=== PATIENT | female | born 1985 | race Two or more races ===

== ENCOUNTER 2018-03-07 12:58 | Observation (INO) | payer BC ==
[2018-03-07] MEDS ORDERED: Acetaminophen TAB* 325 MG ONE (13:59)
[2018-03-07] MEDS: Acetaminophen TAB* 325 MG PO ONE ×2 (14:01→14:51)
--- NOTE | 2018-03-07 14:40 | RAD ---
INDICATION: Postoperative fever evaluate for retained products of conception 3 days . COMPARISON: Comparison is made with a prior pelvic ultrasound from February 20, 2017. TECHNIQUE: Multiple real-time transvaginal images of the pelvis were obtained. FINDINGS: The uterus is heterogeneous and enlarged and normal in shape. The uterus measured 17.7 x 10.3 x 14.7 cm. The endometrial echo measured 0.6 cm in thickness. There is no increased vascularity in or around the endometrium. The right ovary measured 4.3 x 2.5 x 2.7 cm. The left ovary measured 5.0 x 2.0 x 2.6 cm. There is vascular flow within both ovaries. No free intraperitoneal fluid is seen. IMPRESSION: NO EVIDENCE FOR RETAINED PRODUCTS OF CONCEPTION.
[2018-03-07 15:05] LABS: ABS Basophils 0 10^3/ul (0-0.2); ABS Eosinophils 0.1 10^3/ul (0-0.6); ABS Lymphocytes 1.3 10^3/ul (1.0-4.8); ABS Monocytes 1.2 10^3/ul (0-0.8); ABS Neutrophils 15.4 10^3/ul (1.5-7.7); ABS Nucleated RBC 0 10^3/ul; Eosinophil % 0.3 % (0-6); Hematocrit 27 % (35-47); Hemoglobin 8.9 g/dl (12.0-16.0); Mean Corpuscular HGB Conc 33 g/dl (31-36); Mean Corpuscular Hemoglobin 25 pg (27-31); Mean Corpuscular Volume 76 fL (80-97); Mean Platelet Volume 8.1 um3 (7.4-10.4); Nucleated Red Blood Cells % 0; Platelet Count 287 10^3/ul (150-450); Red Blood Count 3.52 10^6/ul (4.0-5.4); Red Cell Distribution Width 17 % (10.5-15)
[2018-03-07 15:14] LABS: INR 0.98 (0.77-1.02)
[2018-03-07 15:19] LABS: Urine Appearance Clear; Urine Blood 3+ (Negative); Urine Color Straw; Urine Ketones Negative (Negative); Urine Protein Negative (Negative); Urine Specific Gravity 1.004 (1.010-1.030); Urine Urobilinogen Negative (Negative)
[2018-03-07 15:20] LABS: EGFR Non-African American 132.1 (>60)
[2018-03-07] MEDS ORDERED: Ciprofloxacin 400MG IVPREMIX(* 400 MG/200 ML BAG IVPB ONE (15:24)
[2018-03-07] MEDS ORDERED: Amoxicillin/Clavulanate TAB* 875 MG PO ONE (15:31)
[2018-03-07] MEDS ORDERED: Ibuprofen TAB* 600 MG PO ONE (18:11)
[2018-03-07] MEDS ORDERED: Acetaminophen TAB* 325 MG PO PRN (19:24)
[2018-03-07] MEDS ORDERED: Gentamicin ADULT per pharmacy 1 NOTE MISC FOLLOW UP PRN (19:27)
[2018-03-07] MEDS: Ibuprofen TAB* 600 MG PO PRN (19:49)
[2018-03-07] MEDS ORDERED: Clindamycin 900 MG IVPREMIX(* 900 MG/50 ML SDV IV ONE (20:00)
[2018-03-07] MEDS: Ferrous Gluconate TAB* 324 MG TAB PO SCH (22:14)
[2018-03-07] MEDS: Gentamicin IVPREMIX 100 MG/100 ML BAG IV SCH (22:16)
[2018-03-08] MEDS: Ibuprofen TAB* 600 MG PO PRN ×2 (02:49→15:08)
[2018-03-08] MEDS: Clindamycin 900 MG IVPREMIX(* 900 MG/50 ML SDV IV SCH ×3 (04:32→20:21)
[2018-03-08] MEDS: Gentamicin IVPREMIX 100 MG/100 ML BAG IV SCH ×3 (05:03→21:45)
[2018-03-08 05:36] LABS: ABS Basophils 0 10^3/ul (0-0.2); ABS Eosinophils 0.1 10^3/ul (0-0.6); ABS Lymphocytes 1.1 10^3/ul (1.0-4.8); ABS Neutrophils 9.7 10^3/ul (1.5-7.7); ABS Nucleated RBC 0 10^3/ul; Eosinophil % 0.6 % (0-6); Hematocrit 26 % (35-47); Hemoglobin 8.5 g/dl (12.0-16.0); Lymphocyte % 9.5 % (25-47); Mean Corpuscular HGB Conc 33 g/dl (31-36); Mean Corpuscular Hemoglobin 25 pg (27-31); Mean Corpuscular Volume 77 fL (80-97); Mean Platelet Volume 7.7 um3 (7.4-10.4); Nucleated Red Blood Cells % 0.1; Platelet Count 273 10^3/ul (150-450); Red Blood Count 3.33 10^6/ul (4.0-5.4); Red Cell Distribution Width 17 % (10.5-15)
[2018-03-08] MEDS: Ferrous Gluconate TAB* 324 MG TAB PO SCH ×2 (09:44→21:48)
[2018-03-08] MEDS ORDERED: Gentamicin Trough Level 1 NOTE MISC FOLLOW UP SCH (20:30)
[2018-03-08] MEDS: Amoxicillin/Clavulanate TAB* 875 MG PO SCH (21:48)
[2018-03-08] MEDS ORDERED: Gentamicin PEAK LEVEL* 1 NOTE MISC FOLLOW UP SCH (22:00)
[2018-03-09 08:12] VITALS: BP 92/45
[2018-03-09] MEDS: Amoxicillin/Clavulanate TAB* 875 MG PO SCH (09:19)
[2018-03-09] MEDS: Ferrous Gluconate TAB* 324 MG TAB PO SCH (09:19)
--- NOTE | 2018-03-09 11:40 | DS ---
DISCHARGE SUMMARY: DATE OF ADMISSION: 03/07/18 DATE OF DISCHARGE: 03/09/18 HOSPITAL COURSE: This patient is a 32-year-old 2 para 2 who presented to the emergency department 3 days with sudden onset of fever to 103 degrees. The patient did not have any acute or localized symptoms. She had some breast pain on the left, but no examination findings for mastitis or obvious endometritis. The patient's delivery was complicated by spontaneous rupture of membranes for 12 hours prior to delivery and a hemorrhage of 500 to 800 cc of blood. Ultrasound performed in the emergency department was notable for no visible retained products of conception. The patient was admitted for IV antibiotics considering her high fever and recent delivery. She was given gentamicin and clindamycin. Her last fever was at about 1900 on the day of admission. After 24 hours, the patient remained completely afebrile and was feeling better. She was transitioned to oral antibiotics with Augmentin at that point. The next morning, about 12 hours later, the patient continued to be afebrile and was still feeling well. She was then discharged to home in good condition. DISCHARGE PHYSICAL EXAMINATION: Temperature 98.6, pulse 83, blood pressure 92/ 45. General: The patient is in no acute distress, very comfortable. Abdomen: Soft, nontender to palpation. Fundus at U -5. LABORATORY INFORMATION: White blood cell count on admission was 18 and decreased to 12 on hospital day 2. Neutrophils decreased from 85.8 to 81.5. Hematocrit on admission was 27. Chemistry was unremarkable. Urinalysis on presentation was notable for 3+ blood, 3+ leukocyte esterase, negative nitrites and squamous cells present. Urine culture returned positive for Strep dysgalactiae, which is strep C. Blood cultures as of discharge were still negative. DISCHARGE MEDICATIONS: Augmentin 875 p.o. b.i.d. x7 days and please see the remainder on the medication reconciliation form. DISCHARGE INSTRUCTIONS: Discharge instructions were discussed at length and written instructions were provided. The patient should return within 1 week to the [facility] office for followup. She should call or return to the ER sooner if she has return of fevers, chills, persistent vomiting or significant abdominal pain. The patient's sight effects specialist was contacted and is aware to ensure the patient's pediatric provider is aware of the patient's recent infection. DISCHARGE DIAGNOSIS: fever with suspected endometritis. [id number]/[id number] #: [id number] [facility]
== END 2018-03-09 12:15 | disposition home or self-care (01) ==
LOC: ED 12:58 → SSU 19:21
PROVIDERS: ADMIT Obstetrics & Gynecology; ATTEND Obstetrics & Gynecology
DX: O86.4 Pyrexia of unknown origin following delivery (principal); O86.89 Other specified puerperal infections; N64.4 Mastodynia; R50.9 Fever, unspecified
CPT/HCPCS: 36415; 76856; 80053; 81003; 81015; 83605; 85025; 85610; 85730; 87040; 87077; 87086; 96365; 96375; 99284; A9270-GY; G0378; J1580